=== PATIENT | female | born 1935 | race Caucasian/White ===

== ENCOUNTER 2017-10-17 03:51 | Emergency (ER) | payer MEDICARE, MEDICAID ==
[~2017-10-17] VITALS: Ht 167.6 cm; Wt 84.1 kg
[~2017-10-17 03:51] MED LIST: AMA100C PO; CLON-528 PO; CLON-529 PO; COL100C PO; HYDR-4069 PO; LEVO100T46 PO; PROP40TA72 PO; ZES10T PO; ZOL50T PO
[2017-10-17 03:53] VITALS: BP 178/66
[2017-10-17] MEDS ORDERED: haloperidol lactate 5mg/ml inj IM ONE (04:00)
[2017-10-17] MEDS ORDERED: LORazepam 2 mg/ml vial IM ONE (04:00)
[2017-10-17 05:00] LABS: CLARITY,URINE CLEAR (Clear); COLOR,URINE YELLOW (Yellow); GLUCOSE, URINE NEGATIVE (Neg); KETONES,URINE NEGATIVE (Neg); LEUKOCYTE ESTERASE ,URINE TRACE (Neg); NITRITES, URINE NEGATIVE (Neg); OCCULT BLOOD,URINE NEGATIVE (Neg); PROTEIN,URINE 30 mg/dl (Neg); UROBILINOGEN,URINE 0.2 E.U/dL (0.2-1.0)
[2017-10-17 05:07] LABS: UA COLLECTION TYPE VOIDED
[2017-10-17 05:08] LABS: BACTERIA,URINE FEW /HPF (Neg); HYALINE CASTS 0-3 /LPF (NEGATIVE); RBC,URINE NONE SEEN /HPF (0-2); SQUAMOUS EPITHELIAL CELL,UR FEW /LPF (FEW); WBC CLUMPS,URINE FEW /HPF (NEGATIVE)
[2017-10-17 05:11] LABS: URINE AMPHETAMINE SCREEN NEGATIVE (Neg); URINE BARBITUATE SCREEN NEGATIVE (Neg); URINE BENZODIAZEPINES SCREEN NEGATIVE (Neg); URINE CANNABINOID SCREEN NEGATIVE (Neg); URINE COCAINE SCREEN NEGATIVE (Neg); URINE METHADONE SCREEN NEGATIVE (Neg); URINE OPIATE SCREEN NEGATIVE (Neg); URINE PHENCYCLIDINE SCREEN NEGATIVE (Neg)
[2017-10-17 05:27] LABS: BASOPHILS # (AUTO) 0.1 X10'3 (0-0.2); BASOPHILS % (AUTO) 0.7 % (0-1); EOSINOPHILS # (AUTO) 0.1 X10'3 (0-0.9); EOSINOPHILS % (AUTO) 1.1 % (0-6); HEMATOCRIT 41.7 % (35.0-45.0); HEMOGLOBIN 14.3 g/dl (12.0-16.0); LYMPHOCYTES # (AUTO) 2.3 X10'3 (1.1-4.8); LYMPHOCYTES % (AUTO) 17.8 % (21-51); MEAN CORPUSCULAR HEMOGLOBIN 31.7 PG (27.0-31.0); MEAN CORPUSCULAR HGB CONC 34.2 % (33.0-36.5); MEAN CORPUSCULAR VOLUME 92.8 FL (78-98); MEAN PLATELET VOLUME 9.4 FL (7.4-10.4); MONOCYTES # (AUTO) 0.8 X10'3 (0-0.9); MONOCYTES % (AUTO) 6.4 % (2-12); NEUTROPHILS # (AUTO) 9.9 X10'3 (1.8-7.7); PLATELET COUNT 283 X10'3 (140-440); RED BLOOD COUNT 4.49 X10'6 (4.20-5.60); RED CELL DISTRIBUTION WIDTH 13.4 % (11.5-14.5); WHITE BLOOD COUNT 13.2 X10'3 (4.5-11.0)
[2017-10-17 05:42] LABS: ALANINE AMINOTRANSFERASE 66 U/L (12-78); ALBUMIN 4.2 G/DL (3.4-5.0); ALBUMIN/GLOBULIN RATIO 0.9 (1.1-1.5); ALKALINE PHOSPHATASE 104 IU/L (46-116); ANION GAP 15 (8-16); ASPARTATE AMINO TRANSFERASE 86 U/L (10-37); BLOOD UREA NITROGEN 36 MG/DL (7-18); BUN/CREATININE RATIO 23.1 (6.6-38.0); CALCIUM 9.7 MG/DL (8.5-10.1); CHLORIDE 104 MMOL/L (99-107); CREATININE 1.56 MG/DL (0.40-0.90); GLUCOSE 128 MG/DL (70-104); POTASSIUM 3.5 MMOL/L (3.5-5.1); SODIUM 142 MMOL/L (135-145); TOTAL CARBON DIOXIDE 22.7 MMOL/L (24-32); TOTAL PROTEIN 8.8 G/DL (6.4-8.2); eGFR 32 ML/MIN
[2017-10-17 05:50] LABS: ETHANOL < 0.010 GM/DL (0.0-0.010)
[2017-10-17 06:27] LABS: ACETAMINOPHEN < 2.0 UG/ML (10-30)
[2017-10-17] MEDS ORDERED: OMEP-50 PO (07:27)
[2017-10-17] MEDS ORDERED: QUET50TA22 PO (07:27)
[2017-10-17] MEDS ORDERED: LOSA100T28 PO (07:27)
[2017-10-17] MEDS ORDERED: LEVO125T8 PO (07:27)
[2017-10-17] MEDS ORDERED: DONE-46 PO (07:27)
[2017-10-17] MEDS ORDERED: AMLO10TA13 PO (07:27)
[2017-10-17] MEDS ORDERED: HYDR12.5 PO (07:27)
[2017-10-17] MEDS ORDERED: VENL37.589 PO (07:27)
[2017-10-17] MEDS ORDERED: LIPA1CAP18 PO (07:27)
[2017-10-17] MEDS ORDERED: BUSP10TA3 PO (07:27)
[2017-10-17] MEDS ORDERED: DONE10TA44 PO (07:27)
[2017-10-17] MEDS ORDERED: CARB1TAB36 PO (07:27)
[2017-10-17] MEDS ORDERED: docusate sod 100mg capsule PO PRN (11:00)
[2017-10-17] MEDS: LIPASE PO SCH ×2 (12:00→15:57)
[2017-10-17] MEDS: PROTEASE PO SCH ×2 (12:00→15:57)
[2017-10-17] MEDS: AMYLASE PO SCH ×2 (12:00→15:57)
[2017-10-17] MEDS ORDERED: clonazePAM 0.5mg tablet PO SCH ×2 (12:00→21:00)
[2017-10-17] MEDS ORDERED: cloNIDine 0.1 mg tablet PO SCH (13:00)
[2017-10-17] MEDS ORDERED: non-formulary drug (Buspirone HCl 1 TAB) PO SCH (13:00)
[2017-10-17] MEDS ORDERED: busPIRone 5mg tablet PO SCH (13:00)
[2017-10-17] MEDS ORDERED: QUEtiapine 25mg tablet PO SCH (13:00)
[2017-10-17] MEDS ORDERED: hydrALAZINE 25 MG tablet PO SCH (13:00)
[2017-10-17] MEDS ORDERED: PANT-47 PO (19:16)
[2017-10-17] MEDS ORDERED: carbidoba-levodopa 25-100mg tablet PO SCH (20:00)
[2017-10-17] MEDS ORDERED: propranolol 40mg tablet PO SCH (20:00)
[2017-10-17] MEDS ORDERED: pantoprazole 40mg Tablet.DR PO SCH (20:00)
[2017-10-18] MEDS ORDERED: HYDROchlorothiazide 12.5mg capsule PO SCH (08:00)
[2017-10-18] MEDS ORDERED: amLODIPine 5mg tablet PO SCH (08:00)
[2017-10-18] MEDS ORDERED: levoTHYROXINE 125mcg tablet PO SCH (08:00)
[2017-10-18] MEDS ORDERED: lisinopril 10 MG tablet PO SCH (08:00)
[2017-10-18] MEDS ORDERED: donepezil 5mg tablet PO SCH ×2 (08:00)
[2017-10-18] MEDS ORDERED: losartan 50mg tablet PO SCH (08:00)
[2017-10-18] MEDS ORDERED: sertraline 50mg tablet PO SCH (08:00)
[2017-10-18] MEDS ORDERED: venlafaxine XR 37.5mg cap (Q24H) PO SCH (08:00)
== END 2017-10-17 17:09 | disposition home or self-care (01) ==
LOC: ER 03:52
DX: F31.13 Bipolar disorder, current episode manic without psychotic features, severe (principal); F02.80 Dementia in other diseases classified elsewhere, unspecified severity, without behavioral disturbance, psychotic disturbance, mood disturbance, and anxiety; I10 Essential (primary) hypertension; G20 Parkinson's disease; Z91.040 Latex allergy status; Z79.899 Other long term (current) drug therapy; Z90.49 Acquired absence of other specified parts of digestive tract; Z90.710 Acquired absence of both cervix and uterus; Z60.2 Problems related to living alone
CPT/HCPCS: 36415; 80053; 80305; 80320; 80329; 81001; 84443; 85025; 96372; 99285; J1630; J2060; 99284

== ENCOUNTER 2018-04-17 04:45 | Emergency (ER) | payer MEDICARE, MEDICAID ==
[~2018-04-17] VITALS: Ht 172.7 cm; Wt 77.3 kg
[~2018-04-17 04:45] MED LIST changes: -AMA100C PO; +AMLO5TAB16 PO; +BUSP10TA10 PO; +CARB1TAB42 PO; +CLON-514 PO; -CLON-528 PO; -CLON-529 PO; +CLON0.252 PO; +DIVA500T9 PO; +DONE-46 PO; -HYDR-4069 PO; -LEVO100T46 PO; +LEVO125T8 PO; +LIPA1CAP18 PO; +PANT40TA4 PO; -PROP40TA72 PO; +QUET100T33 PO; +QUET25TA34 PO; -ZES10T PO; -ZOL50T PO
[2018-04-17 04:51] VITALS: BP 187/107
[2018-04-17] MEDS ORDERED: divalproex sod 250mg ER (24-hour) tablet PO SCH (05:00)
[2018-04-17] MEDS ORDERED: divalproex sod 250mg ER (24-hour) tablet PO ONE (05:00)
[2018-04-17] MEDS ORDERED: clonazePAM 1mg tablet PO ONE (05:00)
[2018-04-17] MEDS ORDERED: CLON-528 PO (05:02)
[2018-04-17] MEDS ORDERED: DIVA-76 PO (05:02)
[2018-04-17] MEDS ORDERED: COLE625T13 PO (05:02)
[2018-04-17] MEDS ORDERED: colesevelam 625mg tablet PO SCH (08:00)
== END 2018-04-17 05:10 | disposition home or self-care (01) ==
LOC: ER 04:45
DX: G47.00 Insomnia, unspecified (principal); F20.9 Schizophrenia, unspecified; F31.9 Bipolar disorder, unspecified; I10 Essential (primary) hypertension; Z76.0 Encounter for issue of repeat prescription; Z85.3 Personal history of malignant neoplasm of breast; Z90.49 Acquired absence of other specified parts of digestive tract; Z90.710 Acquired absence of both cervix and uterus; Z98.890 Other specified postprocedural states; Z91.040 Latex allergy status; Z79.899 Other long term (current) drug therapy
CPT/HCPCS: 99283

== ENCOUNTER 2018-08-15 18:49 | Emergency (ER) | payer MEDICARE, MEDICAID ==
[~2018-08-15] VITALS: Ht 165.1 cm; Wt 140.0 kg
[~2018-08-15 18:49] MED LIST changes: +CLON-528 PO; +COLE625T13 PO
[2018-08-15 19:39] LABS: CLARITY,URINE CLEAR (Clear); COLOR,URINE YELLOW (Yellow); GLUCOSE, URINE NEGATIVE (Neg); KETONES,URINE NEGATIVE (Neg); LEUKOCYTE ESTERASE ,URINE NEGATIVE (Neg); NITRITES, URINE NEGATIVE (Neg); OCCULT BLOOD,URINE NEGATIVE (Neg); PH,URINE 5.5 (4.8-8.0); PROTEIN,URINE NEGATIVE (Neg); UROBILINOGEN,URINE 0.2 E.U/dL (0.2-1.0)
[2018-08-15 19:48] LABS: UA COLLECTION TYPE CLN CATCH MIDSTREAM
[2018-08-15] MEDS ORDERED: losartan 50mg tablet PO ONE (21:05)
[2018-08-15 21:23] LABS: BASOPHILS # (AUTO) 0.1 X10'3 (0-0.2); BASOPHILS % (AUTO) 0.7 % (0-1); EOSINOPHILS # (AUTO) 0.1 X10'3 (0-0.9); EOSINOPHILS % (AUTO) 1.5 % (0-6); HEMATOCRIT 38.7 % (35.0-45.0); HEMOGLOBIN 13.1 g/dl (12.0-16.0); LYMPHOCYTES # (AUTO) 2.4 X10'3 (1.1-4.8); LYMPHOCYTES % (AUTO) 26.8 % (21-51); MEAN CORPUSCULAR HEMOGLOBIN 31.2 PG (27.0-31.0); MEAN CORPUSCULAR HGB CONC 33.7 g/dL (33.0-36.5); MEAN CORPUSCULAR VOLUME 92.7 FL (78-98); MONOCYTES # (AUTO) 0.9 X10'3 (0-0.9); MONOCYTES % (AUTO) 10.6 % (2-12); NEUTROPHILS # (AUTO) 5.3 X10'3 (1.8-7.7); NEUTROPHILS % (AUTO) 60.4 % (42-75); PLATELET COUNT 216 X10'3 (140-440); RED BLOOD COUNT 4.18 X10'6 (4.20-5.60); RED CELL DISTRIBUTION WIDTH 14.8 % (11.5-14.5); WHITE BLOOD COUNT 8.8 X10'3 (4.5-11.0)
[2018-08-15 21:46] LABS: ALANINE AMINOTRANSFERASE 27 U/L (12-78); ALBUMIN 3.6 G/DL (3.4-5.0); ALBUMIN/GLOBULIN RATIO 0.9 (1.1-1.5); ALKALINE PHOSPHATASE 101 IU/L (46-116); ANION GAP 12 (8-16); ASPARTATE AMINO TRANSFERASE 28 U/L (10-37); BILIRUBIN,TOTAL 0.4 MG/DL (0.1-1.0); BLOOD UREA NITROGEN 16 MG/DL (7-18); BUN/CREATININE RATIO 13.8 (6.6-38.0); CALCIUM 8.6 MG/DL (8.5-10.1); CHLORIDE 105 MMOL/L (99-107); CREATININE 1.16 MG/DL (0.40-0.90); GLUCOSE 149 MG/DL (70-104); MAGNESIUM 1.4 MG/DL (1.5-2.4); POTASSIUM 3.8 MMOL/L (3.5-5.1); SODIUM 141 MMOL/L (135-145); TOTAL CARBON DIOXIDE 23.7 MMOL/L (24-32); TOTAL PROTEIN 7.5 G/DL (6.4-8.2); eGFR 45 ML/MIN
[2018-08-15 22:16] LABS: ACETAMINOPHEN < 2.0 UG/ML (10-30); ETHANOL < 0.010 GM/DL (0.0-0.010)
[2018-08-15 22:23] LABS: URINE AMPHETAMINE SCREEN NEGATIVE (Neg); URINE BARBITUATE SCREEN NEGATIVE (Neg); URINE BENZODIAZEPINES SCREEN NEGATIVE (Neg); URINE CANNABINOID SCREEN NEGATIVE (Neg); URINE COCAINE SCREEN NEGATIVE (Neg); URINE METHADONE SCREEN NEGATIVE (Neg); URINE OPIATE SCREEN NEGATIVE (Neg); URINE PHENCYCLIDINE SCREEN NEGATIVE (Neg)
[2018-08-15] MEDS ORDERED: clonazePAM 1mg tablet PO ONE (22:25)
--- NOTE | 2018-08-15 23:28 | NUR ---
The patient transferred to bed 20 from the main ER. She was brought her 2nd to not being able to manage her medications at home, increased confusion and unable to manage in her current level of care. She apparently lives alone and has a care provider come in several times per week. She is very pleasant. She has very poor memory and is not able to give much of a history at this time. She has difficulty with word finding. She tremors from parkinson's disease. She presented as very well groomed. She has difficulty organizing herself. She reports she has not been able to sleep for over 24 hours.
[2018-08-15] MEDS ORDERED: quetiapine 100mg tablet PO ONE (23:30)
--- NOTE | 2018-08-15 23:44 | NUR ---
Review of the patient's chart indicates that she has a long hx of bipolar disorder and she was last hospitalized last year at [facility]. At that time she told Dr. Bates that she had many previous hospitalizations. She denies that she feels suicidal or that she is hearing voices at this time. She may be primarily psychiatric and not clearly only suffering with dementia. She is not a canidate for [facility] 2nd to her age. Referred to [facility] charge coordinator for possible reval for admit.
--- NOTE | 2018-08-16 02:02 | NUR ---
The patient appears to be asleep
--- NOTE | 2018-08-16 05:09 | NUR ---
The patient appears to be sleeping
[2018-08-16 05:42] VITALS: BP 145/69
[2018-08-16] MEDS ORDERED: OMEP40CA37 PO (05:54)
[2018-08-16] MEDS ORDERED: CLON-527 PO ×2 (05:54→10:06)
[2018-08-16] MEDS ORDERED: CARB1TAB23 PO (05:54)
[2018-08-16] MEDS ORDERED: QUET-1 PO (05:54)
[2018-08-16] MEDS ORDERED: DIVA-81 PO ×2 (05:54→10:08)
[2018-08-16] MEDS ORDERED: BUSP5TAB3 PO (05:54)
[2018-08-16] MEDS ORDERED: DONE10TA44 PO (05:54)
[2018-08-16] MEDS ORDERED: SYN0.088T PO (05:54)
[2018-08-16] MEDS ORDERED: LOSA25TA96 PO (05:54)
[2018-08-16] MEDS ORDERED: levoTHYROXINE 125mcg tablet PO SCH (07:00)
[2018-08-16] MEDS ORDERED: pantoprazole 40mg Tablet.DR PO SCH (07:30)
[2018-08-16] MEDS ORDERED: carbidoba-levodopa 25-100mg tablet PO SCH (08:00)
[2018-08-16] MEDS ORDERED: donepezil 5mg tablet PO SCH (08:00)
[2018-08-16] MEDS ORDERED: busPIRone 5mg tablet PO SCH (08:00)
[2018-08-16] MEDS ORDERED: losartan 50mg tablet PO SCH (08:00)
--- NOTE | 2018-08-16 11:17 | NUR ---
health social work professor and daughter at bedside
[2018-08-16] MEDS ORDERED: divalproex sod 250mg ER (24-hour) tablet PO SCH (21:00)
[2018-08-16] MEDS ORDERED: quetiapine 100mg tablet PO SCH ×2 (21:00)
[2018-08-16] MEDS ORDERED: clonazePAM 1mg tablet PO SCH (21:00)
== END 2018-08-16 12:42 | disposition home or self-care (01) ==
LOC: ER 18:50
DX: G20 Parkinson's disease (principal); G47.00 Insomnia, unspecified; F79 Unspecified intellectual disabilities; F03.90 Unspecified dementia, unspecified severity, without behavioral disturbance, psychotic disturbance, mood disturbance, and anxiety; I10 Essential (primary) hypertension; F31.9 Bipolar disorder, unspecified; F20.9 Schizophrenia, unspecified; Z85.3 Personal history of malignant neoplasm of breast; Z90.49 Acquired absence of other specified parts of digestive tract; Z90.710 Acquired absence of both cervix and uterus; Z91.040 Latex allergy status; Z79.899 Other long term (current) drug therapy
CPT/HCPCS: 36415; 71045; 80053; 80305; 80320; 80329; 81003; 83735; 85025; 85610; 93005; 99284

== ENCOUNTER 2019-01-30 12:02 | Emergency (ER) | payer MEDICARE, MEDICAID ==
[~2019-01-30] VITALS: Ht 162.6 cm; Wt 60.0 kg
[~2019-01-30 12:02] MED LIST changes: -AMLO5TAB16 PO; -BUSP10TA10 PO; +BUSP5TAB3 PO; +CARB1TAB23 PO; -CARB1TAB42 PO; -CLON-514 PO; +CLON-527 PO; -CLON-528 PO; -CLON0.252 PO; -COL100C PO; -COLE625T13 PO; +DIVA-81 PO; -DIVA500T9 PO; -DONE-46 PO; +DONE10TA44 PO; -LEVO125T8 PO; -LIPA1CAP18 PO; +LOSA25TA96 PO; +OMEP40CA13 PO; -PANT40TA4 PO; +QUET-1 PO; -QUET100T33 PO; -QUET25TA34 PO; +SYN0.088T PO
[2019-01-30 14:08] LABS: BASOPHILS % (AUTO) 0.7 % (0-1); EOSINOPHILS # (AUTO) 0.2 X10'3 (0-0.9); EOSINOPHILS % (AUTO) 4.3 % (0-6); HEMOGLOBIN 11.7 g/dl (12.0-16.0); LYMPHOCYTES # (AUTO) 1.3 X10'3 (1.1-4.8); LYMPHOCYTES % (AUTO) 34.7 % (21-51); MEAN CORPUSCULAR HEMOGLOBIN 33.3 PG (27.0-31.0); MEAN CORPUSCULAR HGB CONC 34.3 g/dL (33.0-36.5); MEAN CORPUSCULAR VOLUME 97.1 FL (78-98); MEAN PLATELET VOLUME 8.2 FL (7.4-10.4); MONOCYTES # (AUTO) 0.6 X10'3 (0-0.9); MONOCYTES % (AUTO) 14.5 % (2-12); NEUTROPHILS # (AUTO) 1.7 X10'3 (1.8-7.7); NEUTROPHILS % (AUTO) 45.8 % (42-75); PLATELET COUNT 95 X10'3 (140-440); WHITE BLOOD COUNT 3.8 X10'3 (4.5-11.0)
[2019-01-30] MEDS ORDERED: carbidoba-levodopa 25-100mg tablet PO SCH (14:15)
[2019-01-30 14:35] LABS: ALBUMIN 2.7 G/DL (3.4-5.0); ALBUMIN/GLOBULIN RATIO 0.8 (1.1-1.5); ALKALINE PHOSPHATASE 70 IU/L (46-116); ANION GAP 2 (8-16); ASPARTATE AMINO TRANSFERASE 50 U/L (10-37); BILIRUBIN,TOTAL 0.6 MG/DL (0.1-1.0); BLOOD UREA NITROGEN 13 MG/DL (7-18); BUN/CREATININE RATIO 13.3 (6.6-38.0); CALCIUM 8.2 MG/DL (8.5-10.1); CHLORIDE 107 MMOL/L (99-107); CREATININE 0.98 MG/DL (0.40-0.90); GLUCOSE 82 MG/DL (70-104); POTASSIUM 3.5 MMOL/L (3.5-5.1); SODIUM 145 MMOL/L (135-145); TOTAL CARBON DIOXIDE 36.4 MMOL/L (24-32); TOTAL PROTEIN 6.1 G/DL (6.4-8.2); eGFR 54 ML/MIN
[2019-01-30 14:37] LABS: LIPASE 56 U/L (73-393); MAGNESIUM 1.4 MG/DL (1.5-2.4); VALPROATE 96 UG/ML (50-100)
[2019-01-30 14:49] LABS: ALANINE AMINOTRANSFERASE < 6 U/L (12-78)
[2019-01-30 15:41] LABS: CLARITY,URINE CLEAR (Clear); COLOR,URINE YELLOW (Yellow); GLUCOSE, URINE NEGATIVE (Neg); KETONES,URINE NEGATIVE (Neg); LEUKOCYTE ESTERASE ,URINE NEGATIVE (Neg); NITRITES, URINE NEGATIVE (Neg); OCCULT BLOOD,URINE NEGATIVE (Neg); PROTEIN,URINE NEGATIVE (Neg); UROBILINOGEN,URINE 0.2 E.U/dL (0.2-1.0)
[2019-01-30 15:42] LABS: UA COLLECTION TYPE CLN CATCH MIDSTREAM
[2019-01-30 16:14] VITALS: BP 136/72
[2019-03-06] MEDS ORDERED: BUSP10TA11 PO (13:31)
[2019-03-06] MEDS ORDERED: PROP40TA7 PO (13:31)
[2019-03-06] MEDS ORDERED: OMEP-297 PO (13:31)
[2019-03-06] MEDS ORDERED: VALP250C44 PO (13:38)
[2019-03-13] MEDS ORDERED: NITR100C11 PO (17:02)
[2019-03-13] MEDS ORDERED: LEVO250T58 PO (17:02)
== END 2019-01-30 16:16 | disposition home or self-care (01) ==
LOC: ER 12:02
DX: G20 Parkinson's disease (principal); F02.80 Dementia in other diseases classified elsewhere, unspecified severity, without behavioral disturbance, psychotic disturbance, mood disturbance, and anxiety; I10 Essential (primary) hypertension; F31.9 Bipolar disorder, unspecified; F20.9 Schizophrenia, unspecified; Z91.040 Latex allergy status; Z79.899 Other long term (current) drug therapy; Z90.49 Acquired absence of other specified parts of digestive tract; Z90.710 Acquired absence of both cervix and uterus; Z60.2 Problems related to living alone; Z85.820 Personal history of malignant melanoma of skin; Z85.3 Personal history of malignant neoplasm of breast
CPT/HCPCS: 36415; 80053; 80164; 81003; 83690; 83735; 84484; 85025; 93005; 99284

== ENCOUNTER 2019-03-05 17:30 | Emergency (ER) | payer MEDICARE, MEDICAID ==
[~2019-03-05] VITALS: Ht 162.6 cm; Wt 63.2 kg
--- NOTE | 2019-03-05 18:24 | NUR ---
PT HAS OLDER LOOKING BRUISING TO HER RIGHT HIP AND EXCORIATION/DTI TO COCCYX
[2019-03-05 20:35] LABS: BASOPHILS % (AUTO) 0.6 % (0-1); EOSINOPHILS # (AUTO) 0.2 X10'3 (0-0.9); EOSINOPHILS % (AUTO) 2.8 % (0-6); HEMATOCRIT 36.1 % (35.0-45.0); HEMOGLOBIN 12.6 g/dl (12.0-16.0); LYMPHOCYTES # (AUTO) 2.4 X10'3 (1.1-4.8); MEAN CORPUSCULAR HEMOGLOBIN 33.5 PG (27.0-31.0); MEAN CORPUSCULAR HGB CONC 34.9 g/dL (33.0-36.5); MEAN CORPUSCULAR VOLUME 96.2 FL (78-98); MEAN PLATELET VOLUME 8.2 FL (7.4-10.4); MONOCYTES # (AUTO) 1.5 X10'3 (0-0.9); MONOCYTES % (AUTO) 17.7 % (2-12); NEUTROPHILS # (AUTO) 4.5 X10'3 (1.8-7.7); NEUTROPHILS % (AUTO) 51.9 % (42-75); PLATELET COUNT 167 X10'3 (140-440); RED BLOOD COUNT 3.75 X10'6 (4.20-5.60); RED CELL DISTRIBUTION WIDTH 14.6 % (11.5-14.5); WHITE BLOOD COUNT 8.7 X10'3 (4.5-11.0)
[2019-03-05 20:46] LABS: ALANINE AMINOTRANSFERASE 23 U/L (12-78); ALBUMIN 2.3 G/DL (3.4-5.0); ALBUMIN/GLOBULIN RATIO 0.6 (1.1-1.5); ALKALINE PHOSPHATASE 72 IU/L (46-116); ANION GAP 5 (8-16); ASPARTATE AMINO TRANSFERASE 41 U/L (10-37); BILIRUBIN,TOTAL 0.6 MG/DL (0.1-1.0); BLOOD UREA NITROGEN 25 MG/DL (7-18); BUN/CREATININE RATIO 27.2 (6.6-38.0); CALCIUM 8.2 MG/DL (8.5-10.1); CHLORIDE 110 MMOL/L (99-107); CREATINE KINASE 23 U/L (26-192); CREATININE 0.92 MG/DL (0.40-0.90); GLUCOSE 86 MG/DL (70-104); SODIUM 147 MMOL/L (135-145); TOTAL CARBON DIOXIDE 32.4 MMOL/L (24-32); TOTAL PROTEIN 5.9 G/DL (6.4-8.2); eGFR 59 ML/MIN
[2019-03-05 20:59] LABS: CLARITY,URINE CLEAR (Clear); COLOR,URINE YELLOW (Yellow); GLUCOSE, URINE NEGATIVE (Neg); KETONES,URINE TRACE mg/dl (Neg); LEUKOCYTE ESTERASE ,URINE NEGATIVE (Neg); NITRITES, URINE NEGATIVE (Neg); OCCULT BLOOD,URINE NEGATIVE (Neg); PH,URINE 6.5 (4.8-8.0); PROTEIN,URINE NEGATIVE (Neg)
[2019-03-05 21:04] LABS: TOTAL CELLS COUNTED 100
[2019-03-05 21:05] LABS: PLATELET ESTIMATE NORMAL
[2019-03-05 21:06] LABS: UA COLLECTION TYPE STRAIGHT CATH
[2019-03-05 22:19] VITALS: BP 190/76
[2019-03-06] MEDS ORDERED: BUSP10TA11 PO (13:31)
[2019-03-06] MEDS ORDERED: OMEP-297 PO (13:31)
[2019-03-06] MEDS ORDERED: PROP40TA7 PO (13:31)
[2019-03-06] MEDS ORDERED: VALP250C44 PO (13:38)
== END 2019-03-05 22:21 | disposition home or self-care (01) ==
LOC: ER 17:31
DX: S61.213A Laceration without foreign body of left middle finger without damage to nail, initial encounter (principal); S61.215A Laceration without foreign body of left ring finger without damage to nail, initial encounter; S60.222A Contusion of left hand, initial encounter; F03.90 Unspecified dementia, unspecified severity, without behavioral disturbance, psychotic disturbance, mood disturbance, and anxiety; M25.551 Pain in right hip; I10 Essential (primary) hypertension; F31.9 Bipolar disorder, unspecified; F20.9 Schizophrenia, unspecified; Z90.49 Acquired absence of other specified parts of digestive tract; Z90.710 Acquired absence of both cervix and uterus; Z98.890 Other specified postprocedural states; Z60.2 Problems related to living alone; Z91.040 Latex allergy status; Z79.899 Other long term (current) drug therapy; X58.XXXA Exposure to other specified factors, initial encounter; Y93.89 Activity, other specified; Y92.89 Other specified places as the place of occurrence of the external cause; Y99.8 Other external cause status
CPT/HCPCS: 36415; 70450; 72125; 73130; 73502; 80053; 81003; 82550; 84484; 85025; 85610; 99284

== ENCOUNTER → 2019-07-15 | Emergency (ER) | payer BC, MEDICAID ==
[~2019-07-15] VITALS: Ht 165.1 cm; Wt 52.0 kg
[~2019-07-15] MED LIST changes: +AMOX-422 PO; +ASPI81TA52 PO; +BUSP10TA11 PO; -BUSP5TAB3 PO; -DIVA-81 PO; +LEVO125T PO; +LEVO250T58 PO; +MELA3TAB39 PO; +MELA5TAB12 PO; +NITR100C11 PO; +OMEP20CA15 PO; -OMEP40CA13 PO; +PROP40TA7 PO; +QUET25TA34 PO; +VALP250C44 PO; +normal saline 1000ml 1,000 ML IV ONE
[2019-07-15 14:46] LABS: BASOPHILS % (AUTO) 0.6 % (0-1); EOSINOPHILS # (AUTO) 0.2 X10'3 (0-0.9); EOSINOPHILS % (AUTO) 2.9 % (0-6); HEMATOCRIT 36.4 % (35.0-45.0); HEMOGLOBIN 12.3 g/dl (12.0-16.0); LYMPHOCYTES # (AUTO) 1.3 X10'3 (1.1-4.8); LYMPHOCYTES % (AUTO) 17.1 % (21-51); MEAN CORPUSCULAR HEMOGLOBIN 32.5 PG (27.0-31.0); MEAN CORPUSCULAR HGB CONC 33.7 g/dL (33.0-36.5); MEAN CORPUSCULAR VOLUME 96.5 FL (78-98); MEAN PLATELET VOLUME 8.2 FL (7.4-10.4); MONOCYTES # (AUTO) 1.1 X10'3 (0-0.9); MONOCYTES % (AUTO) 14.6 % (2-12); NEUTROPHILS # (AUTO) 4.8 X10'3 (1.8-7.7); NEUTROPHILS % (AUTO) 64.8 % (42-75); PLATELET COUNT 122 X10'3 (140-440); RED BLOOD COUNT 3.77 X10'6 (4.20-5.60); RED CELL DISTRIBUTION WIDTH 15.8 % (11.5-14.5); WHITE BLOOD COUNT 7.4 X10'3 (4.5-11.0)
[2019-07-15 14:57] VITALS: BP 141/68
[2019-07-15 14:59] LABS: ALBUMIN 2.6 G/DL (3.4-5.0); ALBUMIN/GLOBULIN RATIO 0.6 (1.1-1.5); ALKALINE PHOSPHATASE 71 IU/L (46-116); ANION GAP 2 (8-16); ASPARTATE AMINO TRANSFERASE 24 U/L (10-37); BILIRUBIN,TOTAL 0.5 MG/DL (0.1-1.0); BLOOD UREA NITROGEN 21 MG/DL (7-18); BUN/CREATININE RATIO 18.3 (6.6-38.0); CHLORIDE 107 MMOL/L (99-107); CREATININE 1.15 MG/DL (0.40-0.90); GLUCOSE 84 MG/DL (70-104); POTASSIUM 3.9 MMOL/L (3.5-5.1); SODIUM 144 MMOL/L (135-145); TOTAL CARBON DIOXIDE 34.9 MMOL/L (24-32); TOTAL PROTEIN 6.9 G/DL (6.4-8.2); eGFR 45 ML/MIN
[2019-07-15 15:06] LABS: ALANINE AMINOTRANSFERASE < 6 U/L (12-78)
[2019-07-15 17:26] LABS: CLARITY,URINE CLEAR (Clear); COLOR,URINE YELLOW (Yellow); GLUCOSE, URINE NEGATIVE (Neg); KETONES,URINE TRACE mg/dl (Neg); LEUKOCYTE ESTERASE ,URINE NEGATIVE (Neg); NITRITES, URINE NEGATIVE (Neg); OCCULT BLOOD,URINE NEGATIVE (Neg); PH,URINE 5.5 (4.8-8.0); PROTEIN,URINE NEGATIVE (Neg); UA COLLECTION TYPE STRAIGHT CATH
== END | disposition home or self-care (01) ==
LOC: ER 13:31
DX: J18.9 Pneumonia, unspecified organism (principal); Z20.828 Contact with and (suspected) exposure to other viral communicable diseases; R06.02 Shortness of breath; R05 Cough; G20 Parkinson's disease; I10 Essential (primary) hypertension; F31.9 Bipolar disorder, unspecified; F20.9 Schizophrenia, unspecified; Z87.440 Personal history of urinary (tract) infections; Z85.3 Personal history of malignant neoplasm of breast; Z90.89 Acquired absence of other organs; Z90.49 Acquired absence of other specified parts of digestive tract; Z90.710 Acquired absence of both cervix and uterus; Z98.890 Other specified postprocedural states; Z60.2 Problems related to living alone; Z91.040 Latex allergy status; Z79.2 Long term (current) use of antibiotics; Z79.899 Other long term (current) drug therapy
CPT/HCPCS: 36415; 71045; 80053; 81003; 83605; 85025; 87040; 87635; 93005; 99285; J7030

== ENCOUNTER 2019-07-17 11:48 | Inpatient (IN) | payer BC, MEDICAID ==
[~2019-07-17] VITALS: Ht 165.1 cm; Wt 60.0 kg
[~2019-07-17 11:48] MED LIST changes: -ASPI81TA52 PO; -LEVO125T PO; -MELA3TAB39 PO; -MELA5TAB12 PO; -QUET25TA34 PO; -normal saline 1000ml 1,000 ML IV ONE
[2019-07-17] MEDS ORDERED: normal saline 1000ML IV soln IVB ONE (12:05)
[2019-07-17 12:17] LABS: BASOPHILS # (AUTO) 0.1 X10'3 (0-0.2); BASOPHILS % (AUTO) 0.5 % (0-1); EOSINOPHILS # (AUTO) 0.1 X10'3 (0-0.9); HEMATOCRIT 33.6 % (35.0-45.0); HEMOGLOBIN 11.2 g/dl (12.0-16.0); LYMPHOCYTES # (AUTO) 1.5 X10'3 (1.1-4.8); LYMPHOCYTES % (AUTO) 13.1 % (21-51); MEAN CORPUSCULAR HEMOGLOBIN 32.5 PG (27.0-31.0); MEAN CORPUSCULAR HGB CONC 33.4 g/dL (33.0-36.5); MEAN CORPUSCULAR VOLUME 97.2 FL (78-98); MEAN PLATELET VOLUME 7.6 FL (7.4-10.4); MONOCYTES # (AUTO) 1.9 X10'3 (0-0.9); MONOCYTES % (AUTO) 16.8 % (2-12); NEUTROPHILS # (AUTO) 7.9 X10'3 (1.8-7.7); NEUTROPHILS % (AUTO) 68.6 % (42-75); PLATELET COUNT 107 X10'3 (140-440); RED BLOOD COUNT 3.45 X10'6 (4.20-5.60); RED CELL DISTRIBUTION WIDTH 15.9 % (11.5-14.5); WHITE BLOOD COUNT 11.5 X10'3 (4.5-11.0)
[2019-07-17 12:48] LABS: PLATELET ESTIMATE DECREASED; TOTAL CELLS COUNTED 100
[2019-07-17 13:13] LABS: ALANINE AMINOTRANSFERASE 12 U/L (12-78); ALBUMIN 2.3 G/DL (3.4-5.0); ALBUMIN/GLOBULIN RATIO 0.5 (1.1-1.5); ALKALINE PHOSPHATASE 61 IU/L (46-116); ANION GAP 4 (8-16); ASPARTATE AMINO TRANSFERASE 23 U/L (10-37); BILIRUBIN,TOTAL 0.9 MG/DL (0.1-1.0); BLOOD UREA NITROGEN 15 MG/DL (7-18); BUN/CREATININE RATIO 16.3 (6.6-38.0); CALCIUM 8.7 MG/DL (8.5-10.1); CHLORIDE 108 MMOL/L (99-107); CREATININE 0.92 MG/DL (0.40-0.90); GLUCOSE 81 MG/DL (70-104); POTASSIUM 3.5 MMOL/L (3.5-5.1); SODIUM 145 MMOL/L (135-145); TOTAL CARBON DIOXIDE 33.5 MMOL/L (24-32); TOTAL PROTEIN 6.6 G/DL (6.4-8.2); eGFR 59 ML/MIN
[2019-07-17] MEDS ORDERED: azithromycin/NS 500mg/250ml 250 ML IV ONE (13:30)
[2019-07-17] MEDS ORDERED: CefTRIAXone 2gm/D5W 50ml 50 ML IV ONE (13:30)
[2019-07-17] MEDS ORDERED: iohexol 350MG/ML 100ml bottle IV ONE (13:46)
[2019-07-17 14:05] LABS: CREATINE KINASE 47 U/L (26-192)
[2019-07-17 14:33] LABS: CLARITY,URINE CLEAR (Clear); COLOR,URINE YELLOW (Yellow); GLUCOSE, URINE NEGATIVE (Neg); KETONES,URINE TRACE mg/dl (Neg); LEUKOCYTE ESTERASE ,URINE NEGATIVE (Neg); NITRITES, URINE NEGATIVE (Neg); OCCULT BLOOD,URINE NEGATIVE (Neg); PROTEIN,URINE NEGATIVE (Neg)
[2019-07-17 14:37] LABS: UA COLLECTION TYPE CLN CATCH MIDSTREAM
[2019-07-17] MEDS ORDERED: potassium CL 10mEq/100ml bag 100 ML IV PRN ×2 (15:30)
[2019-07-17] MEDS ORDERED: ondansetron/PF 4mg/2ml inj IV PRN (15:30)
[2019-07-17] MEDS ORDERED: potassium Cl 20 mEq SR tablet PO PRN (15:30)
[2019-07-17] MEDS ORDERED: mag hydrox/Alum hydrox/simeth 30ml oral suspension PO PRN (15:30)
[2019-07-17] MEDS ORDERED: magnesium 4gm in 100ml NS 100 ML IV PRN (15:30)
[2019-07-17] MEDS ORDERED: docusate sod 100mg capsule PO PRN (15:30)
[2019-07-17] MEDS ORDERED: magnesium 2GM in 50ml NS 50 ML IV PRN (15:30)
[2019-07-17] MEDS ORDERED: acetaminophen 325mg tablet PO PRN (15:30)
[2019-07-17] MEDS ORDERED: ASPI81TA52 PO (15:50)
[2019-07-17] MEDS ORDERED: LEVO125T PO (15:50)
[2019-07-17] MEDS ORDERED: MELA5TAB12 PO (15:50)
[2019-07-17] MEDS ORDERED: VALP250C44 PO (15:50)
--- NOTE | 2019-07-17 16:52 | NUR ---
PAGED ECHO REASON/SYNCOPE
[2019-07-17] MEDS: amox tr/potassium clavulanate 875/125mg TAB PO SCH (17:48)
[2019-07-17] MEDS: K and/or MAG REPLACEMENT MC SCH (20:00)
--- NOTE | 2019-07-17 20:10 | NUR ---
Received report from Lane CONLEY, in the ED. Pt. arrived at 2024 on a gurney and walked approximately 6 feet to her hospital bed, s.l., room air, a/o, vss. No signs of distress will continue to monitor
[2019-07-17 20:25] VITALS: BP 174/80
[2019-07-17 21:00] VITALS: BP_SYST 110; BP_SYST 146; BP_DIAS 46; BP_DIAS 47; BP_DIAS 56
[2019-07-17] MEDS: quetiapine 100mg tablet PO SCH (21:13)
[2019-07-17] MEDS: Melatonin 3mg tablet PO SCH (21:13)
[2019-07-17] MEDS: clonazePAM 1mg tablet PO SCH (21:14)
[2019-07-17] MEDS: carbidoba-levodopa 25-100mg tablet PO SCH (21:14)
[2019-07-17] MEDS: aspirin 81mg tablet.DR PO SCH (21:14)
[2019-07-17] MEDS: busPIRone 5mg tablet PO SCH (21:14)
[2019-07-17 22:00] VITALS: BP 146/56
--- NOTE | 2019-07-17 22:20 | NUR ---
Paged Dr. Keenan about positive orthostatics and I did not receive any orders
[2019-07-17] MEDS: propranolol 40mg tablet PO SCH (22:43)
[2019-07-17] MEDS: valproic acid 250mg capsule PO SCH (22:44)
--- NOTE | 2019-07-18 03:46 | NUR ---
Tele called and said her heart rate was in 40s and low 50s. called Dr Keenan and she said if heart rate is under 50 to hold propranolol
[2019-07-18 05:32] LABS: BASOPHILS % (AUTO) 0.4 % (0-1); EOSINOPHILS # (AUTO) 0.3 X10'3 (0-0.9); EOSINOPHILS % (AUTO) 3.3 % (0-6); HEMATOCRIT 30.2 % (35.0-45.0); HEMOGLOBIN 10.1 g/dl (12.0-16.0); LYMPHOCYTES # (AUTO) 2.2 X10'3 (1.1-4.8); MEAN CORPUSCULAR HEMOGLOBIN 32.6 PG (27.0-31.0); MEAN CORPUSCULAR HGB CONC 33.7 g/dL (33.0-36.5); MEAN CORPUSCULAR VOLUME 96.7 FL (78-98); MEAN PLATELET VOLUME 7.8 FL (7.4-10.4); MONOCYTES # (AUTO) 1.1 X10'3 (0-0.9); MONOCYTES % (AUTO) 13.7 % (2-12); NEUTROPHILS # (AUTO) 4.1 X10'3 (1.8-7.7); NEUTROPHILS % (AUTO) 53.6 % (42-75); PLATELET COUNT 87 X10'3 (140-440); RED BLOOD COUNT 3.12 X10'6 (4.20-5.60); WHITE BLOOD COUNT 7.7 X10'3 (4.5-11.0)
[2019-07-18 05:46] LABS: ALBUMIN 1.9 G/DL (3.4-5.0); ALBUMIN/GLOBULIN RATIO 0.5 (1.1-1.5); ALKALINE PHOSPHATASE 53 IU/L (46-116); ANION GAP 3 (8-16); ASPARTATE AMINO TRANSFERASE 20 U/L (10-37); BILIRUBIN,TOTAL 0.5 MG/DL (0.1-1.0); BLOOD UREA NITROGEN 11 MG/DL (7-18); BUN/CREATININE RATIO 14.1 (6.6-38.0); CALCIUM 8.1 MG/DL (8.5-10.1); CHLORIDE 109 MMOL/L (99-107); CHOL/HDL RATIO 2.2 (0.00-4.99); CHOLESTEROL 82 MG/DL (0-200); CREATININE 0.78 MG/DL (0.40-0.90); GLUCOSE 67 MG/DL (70-104); HDL CHOLESTEROL 37 MG/DL (35-60); LDL CHOLESTEROL 28 MG/DL (50-100); MAGNESIUM 1.3 MG/DL (1.5-2.4); POTASSIUM 3.2 MMOL/L (3.5-5.1); SODIUM 145 MMOL/L (135-145); TOTAL PROTEIN 5.7 G/DL (6.4-8.2); TRIGLYCERIDES 80 MG/DL (20-135); eGFR 71 ML/MIN
--- NOTE | 2019-07-18 06:00 | NUR ---
Patient in room [facility]. I have received report from ANGELLA CONLEY and had the opportunity to ask questions and assume patient care.
--- NOTE | 2019-07-18 06:13 | NUR ---
Problems reprioritized. Patient report given, questions answered & plan of care reviewed with Nori CONLEY.
[2019-07-18 06:30] LABS: ALANINE AMINOTRANSFERASE < 6 U/L (12-78)
[2019-07-18 08:00] VITALS: BP 147/57
[2019-07-18] MEDS: K and/or MAG REPLACEMENT MC SCH ×2 (08:00→20:00)
[2019-07-18] MEDS: enoxaparin 40mg/0.4ml syringe SQ SCH (08:00)
[2019-07-18] MEDS: valproic acid 250mg capsule PO SCH ×3 (08:40→21:17)
[2019-07-18] MEDS: donepezil 5mg tablet PO SCH (08:40)
[2019-07-18] MEDS: carbidoba-levodopa 25-100mg tablet PO SCH ×2 (08:40→21:16)
[2019-07-18] MEDS: levoTHYROXINE 125mcg tablet PO SCH (08:40)
[2019-07-18] MEDS: busPIRone 5mg tablet PO SCH ×3 (08:40→21:15)
[2019-07-18] MEDS: magnesium Cl slow-release 64mg tablet PO PRN ×2 (08:41→21:15)
[2019-07-18] MEDS: potassium Cl 20 mEq SR tablet PO PRN ×3 (08:41→21:16)
[2019-07-18] MEDS: amox tr/potassium clavulanate 875/125mg TAB PO SCH ×2 (08:41→17:13)
[2019-07-18] MEDS: propranolol 40mg tablet PO SCH ×2 (09:02→21:17)
[2019-07-18 09:30] VITALS: BP_SYST 134; BP_SYST 145; BP_SYST 154; BP_DIAS 69; BP_DIAS 71; BP_DIAS 88
[2019-07-18 11:00] VITALS: BP 134/59
--- NOTE | 2019-07-18 18:10 | NUR ---
Patient in room [facility]. I have received report from Nori CONLEY and had the opportunity to ask questions and assume patient care.
--- NOTE | 2019-07-18 18:15 | NUR ---
Problems reprioritized. Patient report given, questions answered & plan of care reviewed with JANY CONLEY.
[2019-07-18 20:00] VITALS: BP_SYST 132; BP_SYST 138; BP_SYST 146; BP_DIAS 53; BP_DIAS 57; BP_DIAS 62
--- NOTE | 2019-07-18 20:00 | NUR ---
Pt states she weight nearly 200 lbs 1 year ago. She states she has lost more than 60 lbs without trying to in the last year. Pt. attributes her weight loss to her inability to prepare and eat without assistance. Pt. states her tremors prevent her from eating as much as she would prefer to. She believes this may be the cause for her most recent syncopal episode & fall. Pt would like to have caregivers to come more frequently to her home to assist w/ meals Addendum: 07/19/19 at 0405 by Ermelinda Serna RN Amended: Links added.
[2019-07-18] MEDS: aspirin 81mg tablet.DR PO SCH (21:15)
[2019-07-18] MEDS: clonazePAM 1mg tablet PO SCH (21:15)
[2019-07-18] MEDS: lactobacillus rhamnosus 10,000 MMU CELLS/CAPSULE PO SCH (21:16)
[2019-07-18] MEDS: quetiapine 100mg tablet PO SCH (21:16)
[2019-07-18] MEDS: Melatonin 3mg tablet PO SCH (21:16)
--- NOTE | 2019-07-19 06:04 | NUR ---
Problems reprioritized. Patient report given, questions answered & plan of care reviewed with Kristen CONLEY.
[2019-07-19 06:05] LABS: BASOPHILS % (AUTO) 0.6 % (0-1); EOSINOPHILS # (AUTO) 0.3 X10'3 (0-0.9); EOSINOPHILS % (AUTO) 4.6 % (0-6); HEMATOCRIT 31.4 % (35.0-45.0); HEMOGLOBIN 10.7 g/dl (12.0-16.0); LYMPHOCYTES # (AUTO) 2.2 X10'3 (1.1-4.8); LYMPHOCYTES % (AUTO) 30.5 % (21-51); MEAN CORPUSCULAR HEMOGLOBIN 32.9 PG (27.0-31.0); MEAN CORPUSCULAR HGB CONC 34.1 g/dL (33.0-36.5); MEAN CORPUSCULAR VOLUME 96.7 FL (78-98); MEAN PLATELET VOLUME 8.6 FL (7.4-10.4); MONOCYTES # (AUTO) 1.1 X10'3 (0-0.9); NEUTROPHILS # (AUTO) 3.5 X10'3 (1.8-7.7); NEUTROPHILS % (AUTO) 49.3 % (42-75); PLATELET COUNT 92 X10'3 (140-440); RED BLOOD COUNT 3.24 X10'6 (4.20-5.60); RED CELL DISTRIBUTION WIDTH 15.9 % (11.5-14.5); WHITE BLOOD COUNT 7.1 X10'3 (4.5-11.0)
[2019-07-19 06:25] LABS: ALBUMIN 1.8 G/DL (3.4-5.0); ALBUMIN/GLOBULIN RATIO 0.5 (1.1-1.5); ALKALINE PHOSPHATASE 70 IU/L (46-116); ANION GAP 3 (8-16); ASPARTATE AMINO TRANSFERASE 23 U/L (10-37); BILIRUBIN,TOTAL 0.4 MG/DL (0.1-1.0); BLOOD UREA NITROGEN 11 MG/DL (7-18); BUN/CREATININE RATIO 13.6 (6.6-38.0); CALCIUM 8.5 MG/DL (8.5-10.1); CHLORIDE 111 MMOL/L (99-107); CREATININE 0.81 MG/DL (0.40-0.90); GLUCOSE 76 MG/DL (70-104); MAGNESIUM 1.3 MG/DL (1.5-2.4); POTASSIUM 4.3 MMOL/L (3.5-5.1); SODIUM 147 MMOL/L (135-145); TOTAL CARBON DIOXIDE 33.3 MMOL/L (24-32); TOTAL PROTEIN 5.6 G/DL (6.4-8.2); eGFR 68 ML/MIN
--- NOTE | 2019-07-19 06:30 | NUR ---
Patient in room [facility]. I have received report from Hoa CONLEY and had the opportunity to ask questions and assume patient care.
[2019-07-19 06:31] LABS: ALANINE AMINOTRANSFERASE < 6 U/L (12-78)
[2019-07-19 07:00] VITALS: BP 132/60
[2019-07-19] MEDS: enoxaparin 40mg/0.4ml syringe SQ SCH (08:00)
[2019-07-19] MEDS: propranolol 40mg tablet PO SCH ×2 (08:00→20:47)
[2019-07-19] MEDS: K and/or MAG REPLACEMENT MC SCH ×2 (08:00→20:00)
[2019-07-19] MEDS: busPIRone 5mg tablet PO SCH ×3 (08:44→20:47)
[2019-07-19] MEDS: levoTHYROXINE 125mcg tablet PO SCH (08:44)
[2019-07-19] MEDS: amox tr/potassium clavulanate 875/125mg TAB PO SCH ×2 (08:44→17:17)
[2019-07-19] MEDS: lactobacillus rhamnosus 10,000 MMU CELLS/CAPSULE PO SCH ×2 (08:44→20:49)
[2019-07-19] MEDS: carbidoba-levodopa 25-100mg tablet PO SCH ×2 (08:44→20:47)
[2019-07-19] MEDS: donepezil 5mg tablet PO SCH (08:45)
[2019-07-19] MEDS: valproic acid 250mg capsule PO SCH ×3 (08:45→20:48)
--- NOTE | 2019-07-19 10:02 | NUR ---
I spoke with Dr. Jayce Nielsen about propanolol dose this morning and lovenox. Platelets are 92 and heart rate is 50bpms. He said okay to hold both for now. Patient had scd's on.
[2019-07-19] MEDS: magnesium Cl slow-release 64mg tablet PO PRN ×2 (10:06→20:49)
[2019-07-19 11:00] VITALS: BP 158/52
[2019-07-19 13:14] VITALS: BP_SYST 105; BP_SYST 146; BP_SYST 148; BP_DIAS 48; BP_DIAS 56; BP_DIAS 76
[2019-07-19 13:15] VITALS: BP 166/62
--- NOTE | 2019-07-19 13:15 | NUR ---
DR. Jayce Nielsen notified of orthostatic vitals being positive, and heart rate staying low in low 60's high 50's after patient ambulation.
--- NOTE | 2019-07-19 17:58 | NUR ---
Malnutrition consult: Patient is a 83 year old female with history of Dementia, Parkinson's Disease, Hypertension, Bipolar, Depression, Schizophrenia. Per RN note pt reports she used to weigh roughly 200 lbs a year ago and reports more than 60 lb unintentional wt loss in the last year. Pt attributes her weight loss to her inability to prepare and eat without assistance with tremors secondary to Parkinson's per RN notes. Per documented weight history, patient weighed 77.8 kg taken 11/01/17 with standing scale, 60 kg taken 01/30/19 with chair scale, and 63 kg taken 03/05/19 with gurney scale. Current documented wt of 60 kg is pt stated. D/w RN recommendation for obtaining a scaled weight to fully assess for wt loss trends. Per records, pt with 17.8 kg wt loss from October 2017 to January 2019, which is non-significant wt loss of 22% in 15 months, however a new scaled weight is appreciated to assess for any wt loss since the end of 2018. Patient's diet has been changed to pureed with thin liquids per ST recs following BSS, pending documentation of first meal since diet adjustment. Pt previously on mechanical soft diet documented with average 50% PO intake up to 50-75% PO intake at breakfast this morning. Pt receiving assistance at meals however d/w RN that adaptive-antonio might be beneficial given tremors, RN agrees, d/w dietary. Pt with no documented significant decrease in muscle strength or edema. Per ED report pt appears well developed and well nourished. Pending scaled weight to fully assess for malnutrition. D/w dietary to send yogurt TID to assist in meeting protein needs while on vegetarian diet. Will monitor need for ONS. She is awaiting placement. Addendum: 07/19/19 at [address] Amended: Links added. Addendum: 07/20/19 at [address] Malnutrition consult: Patient is a 83 year old female with history of Dementia, Parkinson's Disease, Hypertension, Bipolar, Depression, Schizophrenia. Per RN note pt reports she used to weigh roughly 200 lbs a year ago and reports more than 60 lb unintentional wt loss in the last year. Pt attributes her weight loss to her inability to prepare and eat without assistance with tremors secondary to Parkinson's per RN notes. Per documented weight history, patient weighed 77.8 kg taken 11/01/17 with standing scale, 60 kg taken 01/30/19 with chair scale, and 63 kg taken 03/05/19 with gurney scale. Current documented wt of 60 kg is pt stated. D/w RN recommendation for obtaining a scaled weight to fully assess for wt loss trends. Per records, pt with 17.8 kg wt loss from October 2017 to January 2019, which is non-significant wt loss of 22% in 15 months, however a new scaled weight is appreciated to assess for any wt loss since the end of 2019. Patient's diet has been changed to pureed with thin liquids per ST recs following BSS, pending documentation of first meal since diet adjustment. Pt previously on mechanical soft diet documented with average 50% PO intake up to 50-75% PO intake at breakfast this morning. Pt receiving assistance at meals however d/w RN that adaptive-antonio might be beneficial given tremors, RN agrees, d/w dietary. Pt with no documented significant decrease in muscle strength or edema. Per ED report pt appears well developed and well nourished. Pending scaled weight to fully assess for malnutrition, however at this time does not meet more than two criteria for malnutrition. D/w dietary to send yogurt TID to assist in meeting protein needs while on vegetarian diet. Will monitor need for ONS. She is awaiting placement.
--- NOTE | 2019-07-19 18:21 | NUR ---
Problems reprioritized. Patient report given, questions answered & plan of care reviewed with Ava CONLEY.
[2019-07-19 20:00] VITALS: BP_SYST 147; BP_SYST 160; BP_SYST 173; BP_DIAS 74; BP_DIAS 80
[2019-07-19] MEDS: Melatonin 3mg tablet PO SCH (20:48)
[2019-07-19] MEDS: quetiapine 100mg tablet PO SCH (20:48)
[2019-07-19] MEDS: aspirin 81mg tablet.DR PO SCH (20:49)
[2019-07-19] MEDS: clonazePAM 1mg tablet PO SCH (20:49)
--- NOTE | 2019-07-20 01:00 | NUR ---
Dr. Barajas aware of patient's postive for orthostatic hypotension.
--- NOTE | 2019-07-20 06:32 | NUR ---
Problems reprioritized. Patient report given, questions answered & plan of care reviewed with Asha CONLEY.
[2019-07-20 08:00] VITALS: BP_SYST 111; BP_SYST 113; BP_SYST 138; BP_SYST 167; BP_DIAS 53; BP_DIAS 59; BP_DIAS 64; BP_DIAS 68
[2019-07-20] MEDS: enoxaparin 40mg/0.4ml syringe SQ SCH (08:00)
[2019-07-20] MEDS: lactobacillus rhamnosus 10,000 MMU CELLS/CAPSULE PO SCH ×2 (08:07→21:38)
[2019-07-20] MEDS: levoTHYROXINE 125mcg tablet PO SCH (08:07)
[2019-07-20] MEDS: donepezil 5mg tablet PO SCH (08:07)
[2019-07-20] MEDS: carbidoba-levodopa 25-100mg tablet PO SCH ×2 (08:07→21:39)
[2019-07-20] MEDS: valproic acid 250mg capsule PO SCH ×3 (08:07→21:38)
[2019-07-20] MEDS: magnesium Cl slow-release 64mg tablet PO PRN ×2 (08:07→23:30)
[2019-07-20] MEDS: amox tr/potassium clavulanate 875/125mg TAB PO SCH ×2 (08:07→17:19)
[2019-07-20] MEDS: busPIRone 5mg tablet PO SCH ×3 (08:07→21:38)
[2019-07-20] MEDS: propranolol 40mg tablet PO SCH ×2 (08:08→21:38)
[2019-07-20] MEDS: K and/or MAG REPLACEMENT MC SCH ×2 (08:32→20:00)
[2019-07-20 11:00] VITALS: BP 121/61
--- NOTE | 2019-07-20 16:18 | NUR ---
F/u: Pt seen at bedside reports a low appetite. Pt currently documented with average 50-75% PO intake on pureed heart healthy vegetarian diet. Pt reports she is not a vegetarian, d/w dietary and bedside RN. Diet order has been updated. Pt states she would like food with more flavor, pt agrees to peach or banana smoothie LORA, d/w dietary. Pt denies food allergies or constipation/diarrhea. [facility] 07/18. Will continue to follow. Addendum: 07/20/19 at [address] Amended: Links added.
[2019-07-20 18:00] VITALS: BP_SYST 137; BP_SYST 144; BP_SYST 145; BP_SYST 147; BP_DIAS 50; BP_DIAS 68
--- NOTE | 2019-07-20 18:10 | NUR ---
Problems reprioritized. Patient report given, questions answered & plan of care reviewed with Ava CONLEY.
--- NOTE | 2019-07-20 18:20 | NUR ---
Patient in room [facility]. I have received report from Asha CONLEY and had the opportunity to ask questions and assume patient care.
[2019-07-20] MEDS: clonazePAM 1mg tablet PO SCH (21:38)
[2019-07-20] MEDS: aspirin 81mg tablet.DR PO SCH (21:38)
[2019-07-20] MEDS: Melatonin 3mg tablet PO SCH (21:39)
[2019-07-20] MEDS: quetiapine 100mg tablet PO SCH (21:40)
[2019-07-20 21:42] VITALS: BP 150/69
[2019-07-21] VITALS: BP 105/38
--- NOTE | 2019-07-21 06:00 | NUR ---
Problems reprioritized. Patient report given, questions answered & plan of care reviewed with Asha CONLEY.
[2019-07-21 07:00] VITALS: BP 159/62
[2019-07-21] MEDS: carbidoba-levodopa 25-100mg tablet PO SCH ×2 (07:33→20:04)
[2019-07-21] MEDS: donepezil 5mg tablet PO SCH (07:33)
[2019-07-21] MEDS: amox tr/potassium clavulanate 875/125mg TAB PO SCH (07:33)
[2019-07-21] MEDS: lactobacillus rhamnosus 10,000 MMU CELLS/CAPSULE PO SCH ×2 (07:34→20:04)
[2019-07-21] MEDS: propranolol 40mg tablet PO SCH ×2 (07:34→20:04)
[2019-07-21] MEDS: levoTHYROXINE 125mcg tablet PO SCH (07:34)
[2019-07-21] MEDS: valproic acid 250mg capsule PO SCH ×3 (07:34→21:13)
[2019-07-21] MEDS: busPIRone 5mg tablet PO SCH ×3 (07:34→21:13)
[2019-07-21] MEDS: magnesium Cl slow-release 64mg tablet PO PRN (07:42)
[2019-07-21 08:00] VITALS: BP_SYST 135; BP_SYST 142; BP_SYST 145; BP_DIAS 54; BP_DIAS 57; BP_DIAS 63
[2019-07-21] MEDS: enoxaparin 40mg/0.4ml syringe SQ SCH (08:00)
[2019-07-21] MEDS: K and/or MAG REPLACEMENT MC SCH ×2 (08:03→20:00)
[2019-07-21 11:12] VITALS: BP 142/54
[2019-07-21 12:23] LABS: BASOPHILS % (AUTO) 0.4 % (0-1); EOSINOPHILS # (AUTO) 0.2 X10'3 (0-0.9); EOSINOPHILS % (AUTO) 2.8 % (0-6); HEMATOCRIT 33.2 % (35.0-45.0); HEMOGLOBIN 11.3 g/dl (12.0-16.0); LYMPHOCYTES # (AUTO) 1.4 X10'3 (1.1-4.8); LYMPHOCYTES % (AUTO) 16.2 % (21-51); MEAN CORPUSCULAR HEMOGLOBIN 33.1 PG (27.0-31.0); MEAN CORPUSCULAR HGB CONC 34.2 g/dL (33.0-36.5); MEAN CORPUSCULAR VOLUME 96.7 FL (78-98); MONOCYTES # (AUTO) 1.3 X10'3 (0-0.9); MONOCYTES % (AUTO) 15.9 % (2-12); NEUTROPHILS # (AUTO) 5.5 X10'3 (1.8-7.7); NEUTROPHILS % (AUTO) 64.7 % (42-75); PLATELET COUNT 130 X10'3 (140-440); RED BLOOD COUNT 3.43 X10'6 (4.20-5.60); RED CELL DISTRIBUTION WIDTH 15.7 % (11.5-14.5); WHITE BLOOD COUNT 8.5 X10'3 (4.5-11.0)
[2019-07-21 12:34] LABS: ALBUMIN 1.8 G/DL (3.4-5.0); ALBUMIN/GLOBULIN RATIO 0.5 (1.1-1.5); ALKALINE PHOSPHATASE 64 IU/L (46-116); ANION GAP -1 (8-16); ASPARTATE AMINO TRANSFERASE 17 U/L (10-37); BILIRUBIN,TOTAL 0.3 MG/DL (0.1-1.0); BLOOD UREA NITROGEN 5 MG/DL (7-18); CALCIUM 7.9 MG/DL (8.5-10.1); CHLORIDE 108 MMOL/L (99-107); CREATININE 0.84 MG/DL (0.40-0.90); GLUCOSE 90 MG/DL (70-104); POTASSIUM 4.1 MMOL/L (3.5-5.1); SODIUM 143 MMOL/L (135-145); TOTAL CARBON DIOXIDE 35.9 MMOL/L (24-32); TOTAL PROTEIN 5.7 G/DL (6.4-8.2); eGFR 65 ML/MIN
[2019-07-21 12:35] LABS: ALANINE AMINOTRANSFERASE < 6 U/L (12-78)
[2019-07-21] MEDS: loperamide 2mg capsule PO PRN (12:49)
--- NOTE | 2019-07-21 13:32 | NUR ---
Initial: Pt admit with syncopal episode and mechanical fall. Pt currently on a pureed heart healthy diet with thin liquids per ST recs. Pt documented with average up to 75% PO intake meeting nutrient needs while receiving yogurt TID and fruit smoothie BIDLD. [facility] 07/20. No further nutrition intervention warranted at this time. Will continue to follow. Recommendations: 1) Continue pureed heart healthy diet with thin liquids per ST recs 2) Yogurt TID; Leslie or banana smoothie BIDLD 3) Adaptive-antonio with meals given hx Parkinson's 4) Bowel care PRN 5) Scaled wt per rx Addendum: 07/21/19 at [address] Amended: Links added.
--- NOTE | 2019-07-21 18:07 | NUR ---
Problems reprioritized. Patient report given, questions answered & plan of care reviewed with Therese CONLEY.
[2019-07-21 20:00] VITALS: BP 137/50
[2019-07-21] MEDS: quetiapine 100mg tablet PO SCH (21:12)
[2019-07-21] MEDS: Melatonin 3mg tablet PO SCH (21:13)
[2019-07-21] MEDS: clonazePAM 1mg tablet PO SCH (21:13)
[2019-07-22] VITALS: BP 107/46
--- NOTE | 2019-07-22 06:25 | NUR ---
Problems reprioritized. Patient report given, questions answered & plan of care reviewed with Senia CONLEY. Addendum: 07/22/19 at 0625 by Therese Smith RN Amended: Links added.
--- NOTE | 2019-07-22 06:29 | NUR ---
Patient in room [facility]. I have received report from YAEL Saleh and had the opportunity to ask questions and assume patient care.
[2019-07-22 08:00] VITALS: BP_SYST 102; BP_SYST 115; BP_SYST 122; BP_SYST 131; BP_DIAS 44; BP_DIAS 47; BP_DIAS 50; BP_DIAS 58
[2019-07-22] MEDS: K and/or MAG REPLACEMENT MC SCH ×2 (08:00→20:42)
[2019-07-22] MEDS: busPIRone 5mg tablet PO SCH ×3 (08:11→20:52)
[2019-07-22] MEDS: levoTHYROXINE 125mcg tablet PO SCH (08:11)
[2019-07-22] MEDS: magnesium Cl slow-release 64mg tablet PO SCH (08:11)
[2019-07-22] MEDS: lactobacillus rhamnosus 10,000 MMU CELLS/CAPSULE PO SCH ×2 (08:11→20:53)
[2019-07-22] MEDS: propranolol 40mg tablet PO SCH ×2 (08:11→20:52)
[2019-07-22] MEDS: carbidoba-levodopa 25-100mg tablet PO SCH ×2 (08:11→20:52)
[2019-07-22] MEDS: donepezil 5mg tablet PO SCH (08:11)
[2019-07-22] MEDS: valproic acid 250mg capsule PO SCH ×3 (08:11→20:51)
[2019-07-22 11:00] VITALS: BP 129/51
--- NOTE | 2019-07-22 18:24 | NUR ---
Problems reprioritized. Patient report given, questions answered & plan of care reviewed with YAEL Wadsworth.
--- NOTE | 2019-07-22 18:33 | NUR ---
Patient in room [facility]. I have received report from Senia CONLEY and had the opportunity to ask questions and assume patient care. Pt sitting up in bed. Just finished her dinner. No signs of distress, will continue to monitor.
[2019-07-22 20:00] VITALS: BP 135/49
[2019-07-22] MEDS: quetiapine 100mg tablet PO SCH (20:52)
[2019-07-22] MEDS: clonazePAM 1mg tablet PO SCH (20:52)
[2019-07-23 00:36] VITALS: BP 98/43
[2019-07-23 06:00] VITALS: BP 136/61
--- NOTE | 2019-07-23 06:18 | NUR ---
Problems reprioritized. Patient report given, questions answered & plan of care reviewed with Senia CONLEY.
--- NOTE | 2019-07-23 06:36 | NUR ---
Patient in room [facility]. I have received report from YAEL Wadsworth and had the opportunity to ask questions and assume patient care.
[2019-07-23] MEDS: K and/or MAG REPLACEMENT MC SCH ×2 (07:13→20:00)
[2019-07-23] MEDS: busPIRone 5mg tablet PO SCH ×3 (08:30→20:15)
[2019-07-23] MEDS: levoTHYROXINE 125mcg tablet PO SCH (08:30)
[2019-07-23] MEDS: magnesium Cl slow-release 64mg tablet PO SCH (08:30)
[2019-07-23] MEDS: lactobacillus rhamnosus 10,000 MMU CELLS/CAPSULE PO SCH ×2 (08:30→20:18)
[2019-07-23] MEDS: carbidoba-levodopa 25-100mg tablet PO SCH ×2 (08:30→20:15)
[2019-07-23] MEDS: valproic acid 250mg capsule PO SCH ×3 (08:30→20:18)
[2019-07-23] MEDS: propranolol 40mg tablet PO SCH ×2 (08:31→20:16)
[2019-07-23] MEDS: donepezil 5mg tablet PO SCH (08:31)
[2019-07-23 09:56] LABS: BASOPHILS % (AUTO) 0.3 % (0-1); EOSINOPHILS # (AUTO) 0.2 X10'3 (0-0.9); EOSINOPHILS % (AUTO) 1.6 % (0-6); HEMATOCRIT 39.2 % (35.0-45.0); LYMPHOCYTES # (AUTO) 3.1 X10'3 (1.1-4.8); LYMPHOCYTES % (AUTO) 24.4 % (21-51); MEAN CORPUSCULAR HEMOGLOBIN 32.3 PG (27.0-31.0); MEAN CORPUSCULAR HGB CONC 33.1 g/dL (33.0-36.5); MEAN CORPUSCULAR VOLUME 97.5 FL (78-98); MEAN PLATELET VOLUME 8.3 FL (7.4-10.4); MONOCYTES # (AUTO) 2.3 X10'3 (0-0.9); MONOCYTES % (AUTO) 18.3 % (2-12); NEUTROPHILS # (AUTO) 6.9 X10'3 (1.8-7.7); NEUTROPHILS % (AUTO) 55.4 % (42-75); PLATELET COUNT 171 X10'3 (140-440); RED BLOOD COUNT 4.02 X10'6 (4.20-5.60); RED CELL DISTRIBUTION WIDTH 16.2 % (11.5-14.5); WHITE BLOOD COUNT 12.5 X10'3 (4.5-11.0)
[2019-07-23 10:07] LABS: ALBUMIN 2.2 G/DL (3.4-5.0); ALBUMIN/GLOBULIN RATIO 0.4 (1.1-1.5); ALKALINE PHOSPHATASE 79 IU/L (46-116); ANION GAP 5 (8-16); ASPARTATE AMINO TRANSFERASE 18 U/L (10-37); BILIRUBIN,TOTAL 0.4 MG/DL (0.1-1.0); BLOOD UREA NITROGEN 10 MG/DL (7-18); BUN/CREATININE RATIO 11.4 (6.6-38.0); CALCIUM 8.8 MG/DL (8.5-10.1); CHLORIDE 106 MMOL/L (99-107); CREATININE 0.88 MG/DL (0.40-0.90); GLUCOSE 80 MG/DL (70-104); POTASSIUM 4.1 MMOL/L (3.5-5.1); SODIUM 143 MMOL/L (135-145); TOTAL CARBON DIOXIDE 32.2 MMOL/L (24-32); TOTAL PROTEIN 7.1 G/DL (6.4-8.2); eGFR 62 ML/MIN
[2019-07-23 10:16] LABS: ALANINE AMINOTRANSFERASE < 6 U/L (12-78)
[2019-07-23] MEDS: loperamide 2mg capsule PO PRN (10:26)
[2019-07-23 10:35] LABS: ANISOCYTOSIS 1+; PLATELET ESTIMATE NORMAL; TOTAL CELLS COUNTED 100
[2019-07-23 12:36] VITALS: BP_SYST 116; BP_SYST 127; BP_SYST 142; BP_DIAS 47; BP_DIAS 50
--- NOTE | 2019-07-23 17:18 | NUR ---
Student documentation: I have reviewed and agree with all interventions, assessments performed and documented by Clarke.
--- NOTE | 2019-07-23 18:30 | NUR ---
Problems reprioritized. Patient report given, questions answered & plan of care reviewed with YAEL Smith.
--- NOTE | 2019-07-23 18:53 | NUR ---
Patient in room [facility]. I have received report from YAEL Conn and had the opportunity to ask questions and assume patient care.
[2019-07-23 19:21] VITALS: BP 143/54
[2019-07-23 20:00] VITALS: BP_SYST 128; BP_SYST 133; BP_SYST 136; BP_DIAS 43; BP_DIAS 49; BP_DIAS 59
[2019-07-23] MEDS: clonazePAM 1mg tablet PO SCH (20:17)
[2019-07-23] MEDS ORDERED: QUEtiapine 25mg tablet PO SCH (21:00)
[2019-07-23] MEDS ORDERED: Melatonin 3mg tablet PO SCH (21:00)
--- NOTE | 2019-07-24 06:15 | NUR ---
Problems reprioritized. Patient report given, questions answered & plan of care reviewed with YAEL Conn.
--- NOTE | 2019-07-24 06:16 | NUR ---
Patient in room [facility]. I have received report from YAEL Smith and had the opportunity to ask questions and assume patient care.
[2019-07-24] MEDS: K and/or MAG REPLACEMENT MC SCH (06:33)
[2019-07-24 07:00] VITALS: BP 128/45
[2019-07-24] MEDS: propranolol 40mg tablet PO SCH (07:44)
[2019-07-24] MEDS: donepezil 5mg tablet PO SCH (07:44)
[2019-07-24] MEDS: busPIRone 5mg tablet PO SCH ×2 (07:44→12:37)
[2019-07-24] MEDS: magnesium Cl slow-release 64mg tablet PO SCH (07:44)
[2019-07-24] MEDS: lactobacillus rhamnosus 10,000 MMU CELLS/CAPSULE PO SCH (07:44)
[2019-07-24] MEDS: valproic acid 250mg capsule PO SCH ×2 (07:45→12:37)
[2019-07-24] MEDS: levoTHYROXINE 125mcg tablet PO SCH (07:45)
[2019-07-24] MEDS: carbidoba-levodopa 25-100mg tablet PO SCH (07:45)
[2019-07-24 11:00] VITALS: BP 140/42
[2019-07-24] MEDS ORDERED: QUET25TA34 PO (11:29)
[2019-07-24] MEDS ORDERED: MELA3TAB39 PO (11:29)
--- NOTE | 2019-07-24 11:42 | NUR ---
Primary nurse spoke with daughter, Becky, and reported that the patient would be discharged today. Becky states that she will not be able to pick her mother up until after 1600. She was asked if there was a good time to call to discuss the discharge instructions and Becky stated that 1300 would be a good time. Will call daughter at 1300 and patient will be ready for discharge at 1600.
--- NOTE | 2019-07-24 13:16 | NUR ---
Patient's daughter, Becky was called and the discharge instructions were discussed with her. Patient's preferred pharmacy was confirmed with Becky. New medications were sent to [facility] in [place] per patient's (and daughter's) request. Becky was given time for questions and answers and she stated an understanding of these instructions. Becky was informed that the most important sections in the discharge paperwork would be highlighted for convenience.
--- NOTE | 2019-07-24 17:31 | NUR ---
Patient discharged home via daughter, Becky, and taken from unit via wheelchair with x1 staff. patient alert, oriented and in no apparent distress at time of discharge. Patient PIV removed with cannula intact. Patient's daughter brought clothing for the patient to put on prior to discharge. All other belongings were sent with her. Patient discharge instructions were discussed with her and she stated an understanding.
== END 2019-07-24 17:18 | disposition home health service (06) | DRG 312 ==
LOC: ER 11:48 → OBSVTOIN 15:27 → ED HOLD 15:27 → SUR 3N 20:22
PROVIDERS: ADMIT Family Medicine; ATTEND Family Medicine
PROC: B32T1ZZ Computerized Tomography (CT Scan) of Left Pulmonary Artery using Low Osmolar Contrast (ICD-10-PCS; principal; 2019-07-17)
PROC: B3201ZZ Computerized Tomography (CT Scan) of Thoracic Aorta using Low Osmolar Contrast (ICD-10-PCS; 2019-07-17)
PROC: B32S1ZZ Computerized Tomography (CT Scan) of Right Pulmonary Artery using Low Osmolar Contrast (ICD-10-PCS; 2019-07-17)
DX: I95.1 Orthostatic hypotension (principal); E43 Unspecified severe protein-calorie malnutrition; E87.0 Hyperosmolality and hypernatremia; I13.0 Hypertensive heart and chronic kidney disease with heart failure and stage 1 through stage 4 chronic kidney disease, or unspecified chronic kidney disease; N17.9 Acute kidney failure, unspecified; D63.1 Anemia in chronic kidney disease; E03.9 Hypothyroidism, unspecified; E87.6 Hypokalemia; R19.7 Diarrhea, unspecified; F02.80 Dementia in other diseases classified elsewhere, unspecified severity, without behavioral disturbance, psychotic disturbance, mood disturbance, and anxiety; F20.9 Schizophrenia, unspecified; F41.8 Other specified anxiety disorders; G20 Parkinson's disease; W18.39XA Other fall on same level, initial encounter; I50.9 Heart failure, unspecified; N18.9 Chronic kidney disease, unspecified; R40.0 Somnolence; R29.6 Repeated falls; Z60.2 Problems related to living alone; Z82.0 Family history of epilepsy and other diseases of the nervous system; Z85.3 Personal history of malignant neoplasm of breast; Z90.49 Acquired absence of other specified parts of digestive tract; Z90.710 Acquired absence of both cervix and uterus; Y93.89 Activity, other specified; Y92.091 Bathroom in other non-institutional residence as the place of occurrence of the external cause; Y99.8 Other external cause status; Z91.040 Latex allergy status; Z91.048 Other nonmedicinal substance allergy status; Z79.899 Other long term (current) drug therapy; Z68.22 Body mass index [BMI] 22.0-22.9, adult
CPT/HCPCS: 36415; 70450; 71045; 71275; 76937; 80053; 80061; 81003; 82550; 83605; 83735; 83880; 84145; 84443; 84484; 85025; 87040; 87081; 87635; 92508; 92616; 93005; 93306; 96365; 97110; 97116; 97162; 97530; 99285; G0378; J0456; J0696; J7030; Q9967

== ENCOUNTER 2019-09-06 11:36 | Emergency (ER) | payer BC, MEDICAID ==
[~2019-09-06] VITALS: Ht 152.4 cm; Wt 49.5 kg
[~2019-09-06 11:36] MED LIST changes: -AMOX-422 PO; +ASPI81TA52 PO; +LEVO125T PO; -LEVO250T58 PO; -LOSA25TA96 PO; +MELA3TAB39 PO; -NITR100C11 PO; -OMEP20CA15 PO; -QUET-1 PO; +QUET25TA34 PO; -SYN0.088T PO
--- NOTE | 2019-09-06 12:35 | NUR ---
CARMITA STARK [phone] FOR PICKUP
[2019-09-06] MEDS ORDERED: celeCOXIB 100mg capsule PO SCH (13:30)
[2019-09-06] MEDS ORDERED: HYDROcodone/acetaminophen 5mg/325mg tablet PO ONE (13:30)
--- NOTE | 2019-09-06 13:35 | NUR ---
PT OUT TO CT VIA [facility] WITH GUN TESTER
--- NOTE | 2019-09-06 13:48 | NUR ---
PT RETURNS FROM CT
--- NOTE | 2019-09-06 14:27 | NUR ---
CALLED DAUGHTER CARMITA FOR PICKUP AND TOLD HER SHE WAS READY FOR DISCHARGE AND THAT HER CT WAS NEGATIVE FOR A FRACTURE, CARMITA SAID "WHAT ABOUT HER UTI?" I SAID THAT IS NOT WHY SHE IS HERE SHE IS MEDICALLY CLEARED BY OUR DR. THEN SHE SAID "SHE HAS HAD DIAREHEA FOR TWO YEARS." I EXPLAINED TO HER THAT SHE NEEDS TO FOLLOW UP WITH HER PMD FOR ONGOING ISSUES AND THAT WE CLEARED HER FOR WHAT SHE WAS SEEN FOR TODAY. DAUGHTER THEN HUNGUP ON ME. I TRIED TO CALL BACK BUT THERE WAS NO ANSWER. HEALTHCARE MANAGEMENT AND PRIMARY RN MADE AWARE. THEN I CALLED SON KARI TO SEE IF THERE WAS ANOTHER FAMILY MEMBER TO PICK PT UP AND HE SAID HE WOULD CALL HIS SISTER CARMITA.
--- NOTE | 2019-09-06 14:42 | NUR ---
PT DAUGHTER CARMITA CALLED STATING SHE WILL BE HERE TO ST[employer] CLERK [facility] PT IN THE NEXT HOUR AFTER SHE FINISHES PTS LAUNDRY
[2019-09-06 15:39] VITALS: BP 134/63
== END 2019-09-06 15:43 | disposition home or self-care (01) ==
LOC: ER 11:37
DX: M53.3 Sacrococcygeal disorders, not elsewhere classified (principal); F03.90 Unspecified dementia, unspecified severity, without behavioral disturbance, psychotic disturbance, mood disturbance, and anxiety; G20 Parkinson's disease; I10 Essential (primary) hypertension; F31.9 Bipolar disorder, unspecified; F20.9 Schizophrenia, unspecified; Z90.49 Acquired absence of other specified parts of digestive tract; Z90.710 Acquired absence of both cervix and uterus; Z98.890 Other specified postprocedural states; Z60.2 Problems related to living alone; Z91.040 Latex allergy status; Z79.82 Long term (current) use of aspirin; Z79.899 Other long term (current) drug therapy
CPT/HCPCS: 72192; 99284